=== PATIENT | female | born 1960 | race Caucasian/White ===

== ENCOUNTER 2018-05-20 10:46 | Outpatient (REF) | payer OTHER, SELFPAY ==
--- NOTE | 2018-05-20 10:15 | PAPFT_PTH ---
PATIENT: Jocelyn Saravia LOC: [facility] U#:[id number] AGE/SX: 58/F ROOM: RE05/20/[address]: BANG Weiss : 1960 BED: DIS: 05/20/2018 SPEC #: [id number] RECD: 05/20/18 12:47 STATUS: ISABELLA RELadan #: [id number] CHAU: 05/20/18 10:[address]: Gretel Brewer DEPT: [facility] Cytology RECD BY: Melvi Mckinnon ENTERED: 05/20/18 12:47 SP TYPE: PAPFT SHELLI DR: Ana Daily APRN Tissues: 1 - CX/ENDOCX FOR PAP SMEARS Procedures: PAP THIN PREP/UVM Screening HPV DNA PROBE Comments: [id number]
== END 2018-05-20 11:06 ==
LOC: LBN 10:46
PROVIDERS: PCP Nurse Practitioner; Visit Provider Nurse Practitioner Family
DX: Z12.4 Encounter for screening for malignant neoplasm of cervix (principal); Z11.51 Encounter for screening for human papillomavirus (HPV)
CPT/HCPCS: 88142; 87624

== ENCOUNTER 2018-06-28 08:49 | Outpatient (CLI) | payer OTHER, SELFPAY ==
[2018-06-28 09:27] LABS: HCT 40.9 % (36.0-46.0); HGB 13.6 g/dL (12.0-15.5); Mean Corp. HGB Concentration 33.3 g/dL (32.0-36.0); Mean Corpuscular Hemoglobin 32.2 pg (27.0-33.0); Mean Corpuscular Volume 96.9 fL (80-95); Mean Platelet Volume 10.6 fL (8.0-11.0); Platelet Count 174 x1000/uL (130-400); RBC 4.22 m/cumm (4.00-5.20); RBC Distribution Width 12.6 % (11.7-14.6); White Blood Cell Count 3.98 k/cumm (4.4-10.8)
[2018-06-28 10:56] LABS: ALT 28 U/L (12-78); AST 19 U/L (15-37); Albumin 3.7 g/dL (3.4-5.0); Alkaline Phosphatase 73 U/L (46-116); Anion Gap 8.3 mmol/L (3-11); BUN 17 mg/dL (7-18); Bilirubin, Total 0.6 mg/dL (0.2-1.0); CO2 29.7 mmol/L (21.0-32.0); CREATININE 0.89 mg/dL (0.55-1.02); Calcium 8.9 mg/dL (8.5-10.1); Chloride 106 mmol/L (98-107); Cholesterol 226 mg/dL (50-200); Glucose 88 mg/dL (70-100); HDL Cholesterol 72 mg/dL (40-60); LDL CHOLESTEROL 137 mg/dL (<100); Potassium 4.4 mmol/L (3.5-5.1); Sodium 144 mmol/L (136-145); TSH (W/Ref FT4) 2.81 uIU/mL (0.358-3.74); Total Protein 6.6 g/dL (6.4-8.2); Triglyceride 100 mg/dL (30-150)
== END 2018-06-28 09:09 ==
PROVIDERS: PCP Nurse Practitioner; Visit Provider Nurse Practitioner
DX: I10 Essential (primary) hypertension (principal); E78.00 Pure hypercholesterolemia, unspecified; F43.23 Adjustment disorder with mixed anxiety and depressed mood
CPT/HCPCS: 36415; 80053; 80061; 83721; 85027; 84443

== ENCOUNTER 2018-07-22 14:21 | Outpatient (REF) | payer OTHER, SELFPAY | END 2018-07-22 14:41 | LOC: LBN 14:21 | PROVIDERS: PCP Nurse Practitioner; Visit Provider Nurse Practitioner Family | DX: R30.0 Dysuria (principal) | CPT/HCPCS: 87077; 87086; 87186 ==

== ENCOUNTER 2019-05-20 06:07 | Day surgery (SDC) | payer OTHER, SELFPAY ==
[2019-05-20 06:36] VITALS: BP 118/81; PULSE 51; RESP 16; TEMP 36.6; O2SAT 98
[2019-05-20] MEDS: Lactated Ringers 1,000 ML 80 ML IV (07:07)
--- NOTE | 2019-05-20 07:14 | W.PM.HP.N ---
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 She originally underwent a cheilectomy bunionectomy due to a painful bunion deformity March 2003 with an excellent outcome. Unfortunately she has had progressive degeneration of the joint requiring surgical intervention. Review of Systems All systems reviewed & are unremarkable except as noted in HPI and below PFSH Medical History Atrophic vaginitis (Acute 06/03/13) History of kidney stones (Acute) Surgical History Colonoscopy - MAC (05/22/17) History of bunionectomy (Acute) cheilectomy bunionectomy right foot 2002 History of surgical removal of lesion (Acute) dysplastic nevi exc. from back 2010 Family History Mother Essential hypertension Stroke Father Heart disease Stroke Brother Diabetes Social History Smoking/Tobacco Use Status: Never Alcohol Intake: current Alcohol Intake frequency: a few times a week Alcohol type: wine Drug use: Never Substance use type: does not use current occupation: [employer] Do you feel safe at home: Yes Do you feel safe in your relationship?: Yes History History 0 Para Hx # Term Pregnancies Multiple births Hx # Pregnancies Ectopic pregnancies AB induced Hx Number of Living Children AB spontaneous Meds Home Medications and Allergies Home Medications Medication Instructions Recorded Confirmed Type Lactaid 9,000 unit PO PRN tab.chew 06/09/14 05/20/19 History multivitamin [Daily Multi-Vitamin] 1 ea PO DAILY 06/09/14 05/20/19 History ibuprofen 800 mg PO PRN 07/26/16 05/20/19 History estradiol 10 mcg vaginal tablet 10 mcg VG twice weekly #24 tab 05/20/18 05/20/19 Rx melatonin 3 mg tablet 3 mg PO HS PRN 05/20/18 05/20/19 History nitrofurantoin 100 mg PO BID #14 cap 07/22/18 05/20/19 Rx monohydrate/macrocrystals 100 mg capsule phenazopyridine 100 mg tablet 100 mg PO TID PRN 07/22/18 05/20/19 History Allergies Allergy/AdvReac Type Severity Reaction Status Date / Time Sulfa (Sulfonamide Allergy Intermediate rash Verified 05/20/19 06:49 Antibiotics) doxycycline AdvReac Mild Diarrhea Verified 05/20/19 06:49 Exam Narrative Exam Narrative: 59-year-old female looking her stated age in no acute distress. Peripheral pulses are manually palpable at the ankles 2 out of 4 bilaterally. Capillary refills under 3 seconds to all toes no edema. Muscle groups of 5 out of 5 bilaterally Skeletal exam reveals end-stage degenerative arthrosis of the first MPJ the right foot. Periarticular exostoses are noted and pain is elicited with palpation at the joint line. Minimal range of motion observed at the first MPJ. Enlargement is appreciated laterally over the fifth MPJ with a reactive keratosis seen along the plantar lateral edge of the fifth metatarsal head. Low-grade inflammation is noted and there is pain to gentle palpation. No crepitance of the joint itself was observed. Neurologically she is intact. Toes downgoing. There is no focal deficits. Head is normocephalic Eyes PERRLA Hearing is adequate Uvular is midline, airways assessable, heart had regular rate and rhythm without gallops rubs or murmurs Lung martinez are clear Abdomen was soft, bowel sounds appreciated x4 Impressions end-stage degenerative arthritis first MPJ right foot, bunionette deformity Plan: Jocelyn is being brought to the OR for surgical repair of right bunion and bunionette deformities. She understands risk and complications of surgery pertaining to the potential for pain scarring infection, stiffness of the joint, elevation of the hallux which shortening, recurrence of deformities potentially requiring revisional procedures. Informed consents been obtained no promises made to the final outcome of surgery. Results Last Vital Signs Temp 36.6 C 05/20/19 06:36 Pulse 51 L 05/20/19 06:36 Resp 16 05/20/19 06:36 BP 118/81 05/20/19 06:36 Pulse Ox 98 05/20/19 06:36
[2019-05-20] MEDS: Lidocaine 1% Pres-Free 5 ML VIAL (07:40)
[2019-05-20] MEDS: Bupivacaine 0.5% Pres-Free 30 ML VIAL (07:40)
[2019-05-20] MEDS: Dexamethasone 4 MG/ML VIAL (08:17)
--- NOTE | 2019-05-20 08:49 | W.PM.DSUDISC ---
Discharge Plan Disposition Patient Disposition: HOME Condition: Good Discharge Details Reason For Visit: Correction hallux rigidus and bunionette deformiti Attending Provider: Nirmal Carrasco Primary Care Provider: Ana Daily Home Meds and New Rx's Prescriptions: No Action melatonin 3 mg tablet 3 mg PO HS PRNRF: 0 estradiol [Vagifem] 10 mcg tablet 10 mcg VG twice weekly Qty: 24 RF: 5 phenazopyridine [Pyridium] 100 mg tablet 100 mg PO TID PRNRF: 0 nitrofurantoin monohyd/m-cryst [Macrobid] 100 mg capsule 100 mg PO BID Qty: 14 RF: 0 multivitamin [Daily Multi-Vitamin] 1 EACH tablet 1 ea PO DAILY RF: 0 Lactaid 3,000 UNIT tablet,chewable 9,000 unit PO PRN RF: 0 ibuprofen 800 MG tablet 800 mg PO PRN RF: 0 Discharge Instructions Activity:: Elevate Remove Dressings/Wound Care:: Do Not Remove Shower/Bathe:: Cover Diet:: Normal Diet Discharge Orders Discharge Orders: Discharge Order (Routine); Ordered 05/20/19 Ordered By: Nirmal Carrasco DS: Diagnosis Discharge Diagnosis (1) Hallux rigidus of right foot: Start date: 05/20/19 Start time: 08:50 Status: Acute Asessment and Plan: Underwent a Peace type bunionectomy with 0.062 K wire fixation, partial fifth metatarsal head resection for correction of bunionette deformity oral to the right foot.
[2019-05-20 09:48] VITALS: BP 116/68; PULSE 41; RESP 16; TEMP 36.3; O2SAT 100
--- NOTE | 2019-05-20 10:07 | ROE_ITS ---
DATE OF PROCEDURE: May 20, 2019 PREOPERATIVE DIAGNOSIS: 1. Symptomatic hallux rigidus deformity, right foot. 2. Symptomatic bunionette deformity, right foot. POSTOPERATIVE DIAGNOSIS: Same. PROCEDURE: 1. Peace type bunionectomy with .062 K-Wire fixation. 2. Partial fifth metatarsal head resection, right foot. SURGEON: Marium RuedaPGeorge. ANESTHESIA: IV general with local block first and fifth rays, right foot utilizing 5 cc's of 1% Lido everardo plain and 0.5% Marcaine plain. ANESTHESIA PROVIDER: Genevieve Khan CRNA OPERATIVE INDICATIONS: 59-year-old female with progressive pain associated with a right bunion and b unionette deformity opting for surgical correction. She understands risks and complications of surge ry pertaining to pain, scarring, infection, shortening of the great toe, floating of the great toe, p ersistent discomfort potentially requiring revisional procedures. As far as the bunionette is concer donna, same initial potential complications with the additional caveat of persistent plantar keratosis formation. Informed consent has been obtained. No promises made to the final outcome of surgery. REPORT OF OPERATION: Jocelyn was brought to the operative suite and placed in the supine position. T he right foot prepped and draped in the usual sterile podiatric fashion. Anesthesia was obtained. T he right foot was exsanguinated, a well-padded ankle tourniquet inflated to 250 mmHg. Please note a time-out was performed. Attention was now directed to the first MPJ of the right foot where a 5 cm incision was made medial t o the EHL tendon. The incision was deepened in controlled depth fashion; hemostasis acquired with el ectrocautery, as needed. Dissection was carried down to the joint capsule, which was incised dorsal medially. The joint capsule was very fibrotic and adherent onto the surrounding bone and joint struc tures. It was carefully dissected, removed from the bone. AO's were then inserted at either side of the base of the proximal phalanx and approximately 1 cm of bone resected through power instrumentati on. Please note that the joint surfaces showed end-stage degenerative arthrosis with complete loss o f articular surfaces. The medial, lateral and dorsal aspect of the first metatarsal head was remodel ed. All rough and bony edges were rasped smooth. The wound was copiously irrigated. Fixation was o btained with a .062 K-Wire in retrograde fashion. The joint capsule was repaired after copious irrig ation with simple interrupted suture #3-0 Vicryl. The subcutaneous layer was repaired with a combina tion of #3-0 and #4-0 Vicryl and a running #4-0 Monocryl was used to coapt the skin. Attention was now directed to the fifth MPJ where a 2 cm incision was made over the dorsal lateral as pect of the joint. The incision was deepened in controlled depth fashion; hemostasis acquired with e lectrocautery. The joint capsule was visualized and incised laterally. The joint capsule was reflec uriah plantarly and dorsally. With osteotome and mallet the lateral and lateral plantar aspects of the fifth metatarsal head were resected. The resection was in line with the lateral edge of the base of the proximal phalanx. All rough and bony edges were then rasped smooth. Copious irrigation perform ed. The joint capsule was repaired with simple interrupted suture #3-0 Vicryl. The skin was coapted with #4-0 Vicryl and then a continuous locking suture of #4-0 nylon. Four milligrams of dexamethaso ne phosphate was infused about the first MPJ. Mastisol, half-inch Steri-Strips applied to the bunion incision. Betadine ointment applied to the K-Wire. Xeroform applied to all regions, followed by fl uff, Kerlix, stockinette and 4-inch NAZANIN wrap. The tourniquet was released at approximately 47 minute s with vascularity returning immediately to all toes. The patient left the OR with vital signs stabl e, vascular status intact. She will be followed by me in the office next week.
== END 2019-05-20 10:11 | disposition home or self-care (01) ==
PROVIDERS: PCP Nurse Practitioner; Visit Provider Podiatrist
PROC: (CPT 28292; principal; 2019-05-20 07:30)
DX: M20.21 Hallux rigidus, right foot (principal); M21.621 Bunionette of right foot
CPT/HCPCS: 28292; 28110; 99223; J1100; J1885; J2001; J2405; J2704

== ENCOUNTER 2019-07-27 00:08 | Emergency (ER) | payer OTHER, SELFPAY ==
[2019-07-27 00:20] VITALS: BP 130/83; PULSE 60; RESP 16; TEMP 36.1; O2SAT 100
--- NOTE | 2019-07-27 00:32 | ED.GENADUL_ITS ---
Discharge Plan Disposition Patient Disposition: HOME Condition: Good Discharge Details Chief Complaint: FlankPain Clinical Impression: Calculus of proximal left ureter, Bladder calculi Primary Care Provider: Ana Daily ED Provider: Michael Stiles Meds and New Rx's Prescriptions: New Ondansetron Odt, 3 Tabs/Btl [Zofran Odt, 3 Tabs/Btl] 4 mg PO Q8H PRN (Reason: Nausea And Vomiting) Qty: 3 RF: 0 tamsulosin 0.4 mg capsule 0.4 mg PO DAILY Qty: 14 RF: 0 ibuprofen 600 mg tablet 600 mg PO Q6H PRNQty: 20 RF: 0 Continued melatonin 3 mg tablet 3 mg PO HS PRNRF: 0 estradiol [Vagifem] 10 mcg tablet 10 mcg VG twice weekly Qty: 24 RF: 5 multivitamin [Daily Multi-Vitamin] 1 EACH tablet 1 ea PO DAILY RF: 0 Lactaid 3,000 UNIT tablet,chewable 9,000 unit PO PRN RF: 0 Discontinued ibuprofen 800 MG tablet 800 mg PO PRN RF: 0 No Action hydrocodone-acetaminophen 5-325 mg tablet 1 tab PO BID MDD 10 PRN (Reason: pain) Qty: 20 RF: 0 ciprofloxacin HCl 250 mg tablet 250 mg PO BID Qty: 10 RF: 0 Discharge Instructions Instructions: Hydrocodone/Acetaminophen (By mouth), Ondansetron (By mouth), Renal Colic (ED), How to Strain Your Urine (ED) Additional Instructions: Be sure to drink plenty of fluids to stay hydrated. Use your ibuprofen every 6- 8 hours for pain. Use the hydrocodone/acetaminophen for breakthrough pain if required. Use ondansetron for current nausea or vomiting. Tamsulosin to try to help with the stone passage. Contact Dr. Mistry for follow-up early next week if the stone does not pass. Will need follow-up with him at a later date for discussion regarding the bladder stone if the current ureteral stone passes on its own. Return to ED if you develop fever, uncontrolled pain, uncontrolled vomiting. Referrals: Jimmy Mistry MD [ [facility] STAFF PHYSICIAN] - Ana Daily NP [Primary Care Provider] - Discharge Data Discharge Date/Time-TO BE ENTERED AT DEPARTURE: 07/27/19 03:55 Medical Decision Making <ALICE John - Last Filed: 07/30/19 08:40> Patient is a pleasant 59-year-old female presenting today with chief complaint of left flank pain. She reports sudden onset 1 hour prior to arrival. States is left flank and radiates slightly and inferior down the lower back. She reports that she has had symptoms like this historically and attributes it to nephrolithiasis. Estimates the last episode to be in year 1999. She denies any fevers or chills. Reports feeling well prior to the onset of discomfort. Denies any hematuria, dysuria increased frequency or urgency. No change in bowel habits. Denies any abdominal pain. Patient is actively vomiting and appears to be in severe pain. Exam and history is most concerning for nephrolithiasis. Will give Toradol, Zofran and fluids. Plan to obtain CT imaging. At the end of my shift, care transitioned to Dr. Stiles with CT and labs pending. Patient has had above interventions plus 1mg Dilaudid IV for persistent pain. <Michael Stiles MD - Last Filed: 07/27/19 03:34> Patient signed out to me pending CT scan and laboratory results after presenting with acute onset of left flank pain with previous history of kidney stones. She had been well up until 1 hour prior to arrival. She did have emesis here likely related to the severe pain. She has had no fever. Laboratory studies show a normal CBC. She has normal kidney function. Urine is positive for blood and leukocyte Estrace. She has 10-20 red cells and 10-20 white cells. Few bacteria noted. Culture sent. CT scan does show a 4 mm proximal left ureteral stone with mild hydronephrosis. She also has a large 1.3 cm bladder calculus. Given her lack of fever with normal vitals and normal white count, I do not think she has infected stone even with the noted white cells on urine micro. She has been much more comfortable since receiving Dila udid. Patient will be started on Flomax. She will be asked to use ibuprofen 600 mg every 6-8 hours. She will be given a [place] prepack for breakthrough pain. She will be given Zofran prepack for nausea vomiting. Prescription for Flomax given. Referral to Dr. Mistry for follow-up early next week if she has not passed her kidney stone. If she has she can follow-up at a later point in regards to the bladder stone. Instructed to return to ED if she develops fever, uncontrolled pain, uncontrolled vomiting. Lab Data Lab results reviewed: Yes I reviewed the patient's lab results. HPI <ALICE John - Last Filed: 07/30/19 08:40> General Mode of arrival: ambulatory . Date/Time Provider Initiated Documentation: 07/27/19 00:18 . Limitations to Documentation: no limitations . Information obtained by: patient, family () and RN notes reviewed . History of Present Illness 59 year old F presents to the emergency department with the chief complaint of left flank pain, described as severe and similar to prior episodes (hx of kidney stones 1999), with intensity rated at 10. Quality is described as stabbing, and is localized to the back. Patient reports no radiation. Patient started experiencing this hour(s) (1) and it has been constant. No relieving factors improve symptom(s), No exacerbating factors reported . Patient notes loss of appetite and nausea/vomiting; denies chest pain, diaphoresis, fever/chills, rash and shortness of breath. Patient did receive the following treatments prior to arrival, none Related Data Home Medications Medication Instructions Recorded Confirmed Lactaid 9,000 unit PO PRN tab.chew 06/09/14 07/29/19 multivitamin [Daily Multi-Vitamin] 1 ea PO DAILY 06/09/14 07/29/19 melatonin 3 mg tablet 3 mg PO HS PRN 05/20/18 07/29/19 estradiol 10 mcg vaginal tablet 10 mcg VG twice weekly #24 tab 07/07/19 07/29/19 Ondansetron ODT, 3 tabs/btl 4 mg PO Q8H PRN #3 tab 07/27/19 07/29/19 [Zofran ODT, 3 tabs/btl] ibuprofen 600 mg PO Q6H PRN #20 tab 07/27/19 07/29/19 tamsulosin 0.4 mg PO DAILY #14 cap 07/27/19 07/29/19 ciprofloxacin HCl 250 mg tablet 250 mg PO BID #10 tab 07/29/19 07/29/19 hydrocodone 5 mg-acetaminophen 325 1 tab PO BID PRN #20 tab MDD 10 07/29/19 07/29/19 mg tablet Previous Rx's Medication Instructions Recorded estradiol 10 mcg vaginal tablet 10 mcg VG twice weekly #24 tab 07/07/19 Ondansetron ODT, 3 tabs/btl 4 mg PO Q8H PRN #3 tab 07/27/19 [Zofran ODT, 3 tabs/btl] ibuprofen 600 mg PO Q6H PRN #20 tab 07/27/19 tamsulosin 0.4 mg PO DAILY #14 cap 07/27/19 ciprofloxacin HCl 250 mg tablet 250 mg PO BID #10 tab 07/29/19 hydrocodone 5 mg-acetaminophen 325 1 tab PO BID PRN #20 tab MDD 10 07/29/19 mg tablet Allergies Allergy/AdvReac Type Severity Reaction Status Date / Time Sulfa (Sulfonamide Allergy Intermediate rash Verified 07/29/19 08:17 Antibiotics) doxycycline AdvReac Mild Diarrhea Verified 07/29/19 08:17 General Stated Complaint: FlankPain LETTY: 3 Review of Systems <ALICE John - Last Filed: 07/30/19 08:40> Constitutional Constitutional: Reports as per HPI, Denies chills, Denies fatigue, Denies fever(s) and Denies headache(s) ENT Ears, Nose, Mouth, and Throat: Denies headache(s) Cardiovascular Cardiovascular: Reports as per HPI, Denies chest pain and Denies dyspnea Respiratory Respiratory: Reports as per HPI, Denies cough and Denies dyspnea Gastrointestinal Gastrointestinal: Reports as per HPI Genitourinary Genitourinary: Reports as per HPI Musculoskeletal Musculoskeletal: Reports as per HPI Neurologic Neurologic: Denies headache(s) Endocrine Endocrine: Denies fatigue PFSH <ALICE John - Last Filed: 07/30/19 08:40> Medical History Atrophic vaginitis (Acute 06/03/13) History of kidney stones (Acute) Surgical History Colonoscopy - MAC (05/22/17) History of bunionectomy (Acute) cheilectomy bunionectomy right foot 2002 History of surgical removal of lesion (Acute) dysplastic nevi exc. from back 2010 Social History Smoking/Tobacco Use Status: Never Alcohol Intake: current Alcohol Intake frequency: a few times a week Alcohol type: wine Drug use: Never Substance use type: does not use current occupation: [employer] Do you feel safe at home: Yes Do you feel safe in your relationship?: Yes History History 0 Para Hx # Term Pregnancies Multiple births Hx # Pregnancies Ectopic pregnancies AB induced Hx Number of Living Children AB spontaneous Exam <ALICE John Last Filed: 07/30/19 08:40> Const General: cooperative, uncomfortable (patient appears to be very uncomfortable), no acute distress, well developed and ill appearing acutely (actively vomiting) Nutritional Appearance: average body habitus and well nourished Orientation: alert and awake HENMT Mouth: moist mucous membranes Resp Effort & Inspection: normal respiratory effort and no respiratory distress Auscultation: clear to auscultation bilaterally, no rales, no rhonchi and no wheezes Cardio Rate: regular rate Rhythm: regular rhythm Heart Sounds: S1 normal and S2 normal GI Inspection: normal to inspection, no edema and non-distended Palpation: soft, no hepatosplenomegaly, no guarding, no hernias, no pulsatile masses and nontender Percussion: normal to percussion Auscultation: normal bowel sounds Back/Spine/Pelvis Back: no CVA tenderness Skin General skin exam: no rashes or lesions noted Neuro General: patient alert and patient awake Cognition: normal cognition Speech: speech normal Gait: normal gait Psych Appearance: grossly normal and well kempt Mental Status: mental status grossly normal Speech and Movement: speech and movement normal Course <ALICE John Last Filed: 07/30/19 08:40> Vital Signs Vital signs: Vital Signs Temperature 36.1 C L 07/27/19 00:20 Pulse 60 07/27/19 00:20 Respiratory Rate 16 07/27/19 00:20 Pulse Oximetry 100 07/27/19 00:20 Temperature 36.1 C L 07/27/19 00:20 Temperature Source Skin 07/27/19 00:20 Pulse 60 07/27/19 00:20 Respiratory Rate 16 07/27/19 00:20 Blood Pressure Position Sitting 07/27/19 00:20 Pulse Oximetry 100 07/27/19 00:20 Oxygen Delivery Method Room Air 07/27/19 00:20 Oxygen Flow Rate 0 07/27/19 00:20 Sign Out <ALICE John Last Filed: 07/30/19 08:40> Sign Out Data: Sign Out Comment: Care transitioned to Dr. Stiles with labs and imaging pending. Patient has received Toradol, Zofran and dilaudid. Last updated by Chelsey Urias PA at 07/27/19 00:49
[2019-07-27] MEDS: Ketorolac 30 MG/ML VIAL IVP (00:35)
[2019-07-27] MEDS: Ondansetron 4 MG/2 ML VIAL IVP ×2 (00:35→03:40)
[2019-07-27] MEDS: Normal Saline Flush 10 ML SYR IVP (00:36)
[2019-07-27] MEDS: Normal Saline 1,000 ML 1000 ML IV (00:36)
[2019-07-27 00:51] LABS: Abs Immature Grans 0.01 k/cumm (0.0-0.09); Absolute Basophil Count 0.02 k/cumm (0.0-0.2); Absolute Eosinophil Count 0.08 k/cumm (0.0-0.7); Absolute Lymphocyte Count 3.34 k/cumm (1.2-3.4); Absolute Neutrophil Count 2.52 k/cumm (1.2-6.7); Basophils % 0.3; Eosinophils % 1.2; HCT 40.6 % (36.0-46.0); Immature Grans % 0.2 %; Lymphocytes % 50.8; Mean Corp. HGB Concentration 34.5 g/dL (32.0-36.0); Mean Corpuscular Hemoglobin 32.5 pg (27.0-33.0); Mean Corpuscular Volume 94.2 fL (80-95); Mean Platelet Volume 10.5 fL (8.0-11.0); Monocytes % 9.1; Neutrophils % 38.4; Platelet Count 168 x1000/uL (130-400); RBC 4.31 m/cumm (4.00-5.20); RBC Distribution Width 12.2 % (11.7-14.6); White Blood Cell Count 6.57 k/cumm (4.4-10.8)
[2019-07-27] MEDS: HYDROmorphone 2 MG/ML VIAL 1 MG IVP (00:57)
[2019-07-27 00:59] LABS: ALT 26 U/L (14-59); AST 21 U/L (15-37); Albumin 3.9 g/dL (3.4-5.0); Alkaline Phosphatase 67 U/L (46-116); Anion Gap 8.9 mmol/L (3-11); BUN 23 mg/dL (7-18); Bilirubin, Total 0.2 mg/dL (0.2-1.0); CO2 28.1 mmol/L (21.0-32.0); Calcium 9.2 mg/dL (8.5-10.1); Chloride 108 mmol/L (98-107); Estimated GFR 56.56 (mL/min/1.73m2); Glucose 133 mg/dL (74-106); Potassium 3.6 mmol/L (3.5-5.1); Sodium 145 mmol/L (136-145); Total Protein 6.9 g/dL (6.4-8.2)
[2019-07-27 01:23] VITALS: BP 115/71; PULSE 45; RESP 16; O2SAT 100
--- NOTE | 2019-07-27 01:25 | DI.CT_ITS ---
EXAM: CT RENAL COLIC WO CLINICAL HISTORY: left flank pain COMPARISON: No exams were available for comparison FINDINGS: CT examination of the abdomen and pelvis was performed without contrast administration. Images obtain ed through the lung bases are unremarkable. The visualized liver and spleen appear normal. Pancreas is unremarkable by CT criteria as are the gallbladder and bile ducts. Abdominal aorta is of normal diameter. No significant abdominal wall hernia. No significant abdominal or pelvic adenopathy. No free fluid or free air in the peritoneal cavity. Adrenals appear normal bilaterally. There are multiple bilateral nonobstructing renal calculi. Ther e is a 4 millimeter in diameter proximal left ureteral calculus causing mild left hydronephrosis. 13 millimeter stone is present in the urinary bladder as well. No additional ureteral calculi seen. Appendix is normal. No evidence of diverticulitis or bowel obstruction. 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 IMPRESSION: Bilateral nonobstructing renal calculi and urinary bladder calculus noted. Obstructing 4 millimeter in diameter proximal left ureteral stone with mild left hydronephrosis.
--- NOTE | 2019-07-27 01:52 | DI.VRAD_ITS ---
PROCEDURE INFORMATION: Exam: CT Abdomen And Pelvis Without Contrast Exam date and time: 07/27/2019 12:31 AM Age: 59 years old Clinical indication: Patient HX: Left flank pain, HX of kidney stones TECHNIQUE: Imaging protocol: Computed tomography of the abdomen and pelvis without contrast. Radiation optimization: All CT scans at this facility use at least one of these dose optimization techniques: automated exposure control; mA and/or kV adjustment per patient size (includes targeted exams where dose is matched to clinical indication); or iterative reconstruction. COMPARISON: No relevant prior studies available. FINDINGS: Liver: Unremarkable. Gallbladder and bile ducts: No calcified gallstones. No significant biliary dilation. Pancreas: Unremarkable. Spleen: Unremarkable. Adrenals: No mass. Kidneys and ureters: Tiny nonobstructing bilateral renal calculi. Mild left hydronephrosis. A 4 mm calculus is seen in the proximal left ureter. Stomach and bowel: No bowel obstruction. There are a few scattered colonic diverticuli. No evidence of diverticulitis. Appendix: No evidence of appendicitis. Intraperitoneal space: Unremarkable. No free air. No significant fluid collection. Vasculature: Unremarkable. No abdominal aortic aneurysm. Lymph nodes: Unremarkable. No enlarged lymph nodes. Bladder: A 1.3 cm calculus is seen within the bladder. Reproductive: Unremarkable as visualized. Bones/joints: No acute bony abnormality. Soft tissues: Small, fat containing umbilical hernia. IMPRESSION: 1. Mild left hydronephrosis. 4 mm calculus in the proximal left ureter. 2. Bilateral non-obstructing renal calculi. 3. Bladder calculus. 4. Additional incidental/non-emergent findings, as above. Dictated and Authenticated by: Jose Miguel Scott MD. Ordering:RENY Barbosa MD
[2019-07-27 02:11] LABS: Bilirubin Negative (Negative); Blood Moderate (Negative); Clarity Sl Cloudy (Clear); Glucose Negative (Negative); Ketones Negative (Negative); Leukocyte Esterase Moderate (Negative); Nitrite Negative (Negative); Specific Gravity 1.025 (1.005-1.025); Urobilinogen 0.2 EU/dL (Up TO 0.2); pH 6.5 (5-8)
[2019-07-27 02:19] LABS: Bacteria Few HPF (Negative); C & S Indicated? Yes; Casts Negative LPF (Negative); Crystals Negative HPF (Negative); Epithelial Cells Rare HPF (Negative); Mucus Negative (Negative)
[2019-07-27 02:56] VITALS: BP 126/75; PULSE 50; RESP 16; O2SAT 100
--- NOTE | 2019-07-27 03:20 | NUR.NOTE ---
Nursing NoteFAXED REFERAL TO DR CURTIS 07/27/19:
[2019-07-27] MEDS: Ondansetron O.D.T. 4 MG TABEF, 3 TABS/BTL PO (03:40)
[2019-07-27] MEDS: Tamsulosin 0.4 MG CAPCR PO (03:40)
== END 2019-07-27 03:55 | disposition home or self-care (01) ==
PROVIDERS: Physician Assistant; Emergency Provider Emergency Medicine; PCP Nurse Practitioner
DX: N21.0 Calculus in bladder (principal); N20.1 Calculus of ureter
CPT/HCPCS: 80053; 87077; 96361; 96374; 96375; 96376; 99285; 74176; 81003; 81015; 85025; 87086; 87186; 99284; J1885; J2405

== ENCOUNTER 2019-07-28 12:31 | Outpatient (REF) | payer OTHER, SELFPAY | END 2019-07-28 12:51 | LOC: LBN 12:31 | PROVIDERS: PCP Nurse Practitioner; Visit Provider Nurse Practitioner Gerontology | DX: N20.1 Calculus of ureter (principal); N21.0 Calculus in bladder | CPT/HCPCS: 87086 ==

== ENCOUNTER 2019-07-29 02:32 | Day surgery (SDC) | payer OTHER, SELFPAY ==
[2019-07-29 02:41] VITALS: BP 143/80; PULSE 58; RESP 20; TEMP 36.8; O2SAT 96
--- NOTE | 2019-07-29 02:41 | ED.GENADUL_ITS ---
Discharge Plan Disposition Patient Disposition: [facility] INPATIENT Condition: Fair Discharge Details Chief Complaint: FlankPain Clinical Impression: Left ureteral stone, UTI (urinary tract infection), bacterial Primary Care Provider: Ana Daily ED Provider: Michael Stiles Meds and New Rx's Prescriptions: No Action melatonin 3 mg tablet 3 mg PO HS PRNRF: 0 estradiol [Vagifem] 10 mcg tablet 10 mcg VG twice weekly Qty: 24 RF: 5 hydrocodone-acetaminophen 5-325 mg tablet 1 tab PO BID MDD 10 PRN (Reason: pain) Qty: 10 RF: 0 multivitamin [Daily Multi-Vitamin] 1 EACH tablet 1 ea PO DAILY RF: 0 Lactaid 3,000 UNIT tablet,chewable 9,000 unit PO PRN RF: 0 Ondansetron Odt, 3 Tabs/Btl [Zofran Odt, 3 Tabs/Btl] 4 mg PO Q8H PRN (Reason: Nausea And Vomiting) Qty: 3 RF: 0 tamsulosin 0.4 mg capsule 0.4 mg PO DAILY Qty: 14 RF: 0 ibuprofen 600 mg tablet 600 mg PO Q6H PRNQty: 20 RF: 0 Medical Decision Making Recurrent pain secondary to ureteral stone. Afebrile. Looks uncomfortable. Establish IV and give fluids and antiemetics/pain medication. Repeat labs and UA. Reevaluate. 5am - Patient feeling much better without pain. Still normal WBC. Creatinine has gone up some. Urine no longer has red cells but continues to have white cells. Urine culture from last ED visit is now growing greater than 100,000 enterococcus. Repeat imaging not done. Will need to consider probable infected stone at this point. Will dose with IV Ancef and contact urology, Dr. Mistry. 5:30 - Discussed with Dr. Mistry. Will keep the patient here in ED and he will see around 7am. Plan to go to OR from here and then discharge from PACU after surgery. Patient and aware and agreeable. Lab Data Lab results reviewed: Yes I reviewed the patient's lab results. HPI General Mode of arrival: ambulatory . Date/Time Provider Initiated Documentation: 07/29/19 02:41 . Limitations to Documentation: no limitations . Information obtained by: patient, RN notes reviewed and old records reviewed . HPI Narrative: Patient presents to ED with left flank and lower quadrant pain. Patient seen here 2 days ago with diagnosis of proximal left ureteral stone. Had been doing relatively well until tonight. Pain has moved and is now lower in the flank and abdomen. No fever. Nausea and some dry heaves with a severe pain. No urinary symptoms. Has taken ibuprofen and 1-1/2 [place] tablets at home without relief. Related Data Home Medications Medication Instructions Recorded Confirmed Lactaid 9,000 unit PO PRN tab.chew 06/09/14 07/29/19 multivitamin [Daily Multi-Vitamin] 1 ea PO DAILY 06/09/14 07/29/19 melatonin 3 mg tablet 3 mg PO HS PRN 05/20/18 07/29/19 estradiol 10 mcg vaginal tablet 10 mcg VG twice weekly #24 tab 07/07/19 07/29/19 Ondansetron ODT, 3 tabs/btl 4 mg PO Q8H PRN #3 tab 07/27/19 07/29/19 [Zofran ODT, 3 tabs/btl] ibuprofen 600 mg PO Q6H PRN #20 tab 07/27/19 07/29/19 tamsulosin 0.4 mg PO DAILY #14 cap 07/27/19 07/29/19 hydrocodone 5 mg-acetaminophen 325 1 tab PO BID PRN #10 tab MDD 10 07/28/19 07/29/19 mg tablet Previous Rx's Medication Instructions Recorded estradiol 10 mcg vaginal tablet 10 mcg VG twice weekly #24 tab 07/07/19 Ondansetron ODT, 3 tabs/btl 4 mg PO Q8H PRN #3 tab 07/27/19 [Zofran ODT, 3 tabs/btl] ibuprofen 600 mg PO Q6H PRN #20 tab 07/27/19 tamsulosin 0.4 mg PO DAILY #14 cap 07/27/19 hydrocodone 5 mg-acetaminophen 325 1 tab PO BID PRN #10 tab MDD 10 07/28/19 mg tablet Allergies Allergy/AdvReac Type Severity Reaction Status Date / Time Sulfa (Sulfonamide Allergy Intermediate rash Verified 07/29/19 02:43 Antibiotics) doxycycline AdvReac Mild Diarrhea Verified 07/29/19 02:43 General LETTY: 3 Review of Systems Narrative: 02/21 Review of Systems completed and is negative except as stated above in HPI (Systems reviewed: Const, Eyes, ENT, Resp, CV, GI, , MSK, Skin, Neuro) [facility] Medical History Atrophic vaginitis (Acute 06/03/13) History of kidney stones (Acute) Surgical History Colonoscopy - MAC (05/22/17) History of bunionectomy (Acute) cheilectomy bunionectomy right foot 2002 History of surgical removal of lesion (Acute) dysplastic nevi exc. from back 2010 Social History Smoking/Tobacco Use Status: Never Alcohol Intake: current Alcohol Intake frequency: a few times a week Alcohol type: wine Drug use: Never Substance use type: does not use current occupation: [employer] Do you feel safe at home: Yes Do you feel safe in your relationship?: Yes History History 0 Para Hx # Term Pregnancies Multiple births Hx # Pregnancies Ectopic pregnancies AB induced Hx Number of Living Children AB spontaneous Exam Narrative Exam Narrative: Vitals: Afebrile. Elevated blood pressure. Normal pulse oximetry. Const: WDWN female appears uncomfortable. HEENT: NC/AT. Normal facial exam. Eyes: Normal conjunctiva and sclera. Neck: Supple. Trachea midline. Lungs: Normal respiratory effort. GI: Soft. NT/ND. No guarding or rebound. Back: Mild left CVAT Neuro: A+O x 3. Normal speech, mentation, gait. Cranial nerves II - XII grossly intact. No gross motor or sensory deficit. Ext: No C/C/E. Skin: Warm and dry without rash.
[2019-07-29] MEDS: Ondansetron 4 MG/2 ML VIAL IVP (03:01)
[2019-07-29] MEDS: MORPHine 10 MG/ML VIAL 4 MG IVP ×2 (03:02→10:35)
[2019-07-29] MEDS: Ketorolac 30 MG/ML VIAL 15 MG IVP (03:03)
[2019-07-29] MEDS: Normal Saline Flush 10 ML SYR IVP ×2 (03:05→10:36)
[2019-07-29] MEDS: Normal Saline 1,000 ML 125 ML IV (03:05)
[2019-07-29 04:20] LABS: Abs Immature Grans 0.02 k/cumm (0.0-0.09); Absolute Basophil Count 0.01 k/cumm (0.0-0.2); Absolute Lymphocyte Count 0.69 k/cumm (1.2-3.4); Absolute Monocyte Count 0.75 k/cumm (0.11-0.7); Absolute Neutrophil Count 6.98 k/cumm (1.2-6.7); Basophils % 0.1; HCT 38.7 % (36.0-46.0); HGB 12.9 g/dL (12.0-15.5); Immature Grans % 0.2 %; Lymphocytes % 8.2; Mean Corp. HGB Concentration 33.3 g/dL (32.0-36.0); Mean Corpuscular Hemoglobin 32.1 pg (27.0-33.0); Mean Corpuscular Volume 96.3 fL (80-95); Mean Platelet Volume 11.4 fL (8.0-11.0); Monocytes % 8.9; Neutrophils % 82.6; Platelet Count 153 x1000/uL (130-400); RBC 4.02 m/cumm (4.00-5.20); RBC Distribution Width 12.3 % (11.7-14.6); White Blood Cell Count 8.45 k/cumm (4.4-10.8)
[2019-07-29 04:28] LABS: Anion Gap 10.5 mmol/L (3-11); BUN 18 mg/dL (7-18); CO2 25.5 mmol/L (21.0-32.0); CREATININE 1.38 mg/dL (0.55-1.02); Calcium 8.5 mg/dL (8.5-10.1); Chloride 104 mmol/L (98-107); Glucose 122 mg/dL (74-106); Potassium 4.2 mmol/L (3.5-5.1); Sodium 140 mmol/L (136-145)
[2019-07-29 04:38] LABS: Bilirubin Negative (Negative); Blood Negative (Negative); Clarity Clear (Clear); Glucose Negative (Negative); Ketones Negative (Negative); Leukocyte Esterase Small (Negative); Nitrite Negative (Negative); Specific Gravity 1.025 (1.005-1.025); Urobilinogen 0.2 EU/dL (Up TO 0.2)
[2019-07-29 04:41] LABS: Bacteria Moderate HPF (Negative); C & S Indicated? Yes; Casts Negative LPF (Negative); Crystals Negative HPF (Negative); Epithelial Cells Few HPF (Negative); Mucus Negative (Negative); RBC Negative HPF (0-2)
--- NOTE | 2019-07-29 07:06 | NUR.NOTE ---
Nursing Note: Report given to Ai and care assumed by oncoming shift. Pain medication has been effective for patient and she has remained comfortable. No complaints at this time. Pending OR.
--- NOTE | 2019-07-29 07:27 | HPE_ITS ---
Date of service: 07/29/19 Time of Service: 07:28 Assessment and Plan Assessment and plan (1) Left ureteral stone: Status: Acute Assessment and plan: With the presence of a urinary tract infection, I thi nk we need to at least place a ureteral stent in this woman. If her ureteral stone has migrated distally, I may be able to remove the stone as well, but placing a stent would allow us to relieve any obstruction and arrange for treatment of both her ureteral and bladder stone as a staged procedure. I would expect that she will be able to be discharged immediately after the procedure and not require hospitalization as an inpatient. History of Present Illness History of Present Illness Chief Complaint: Left ureteral stone Narrative: This is a 59-year-old woman who was seen in our office yesterday. She originally presented to the emergency room with left flank pain. She was found to have a 4 mm left proximal ureteral stone that was causing obstruction. She was also found to have a large stone in her bladder. When she was seen yesterday, her pain was reasonably well-controlled. She presented back to the emergency room this morning with an acute onset of left lower quadrant pain, nausea and vomiting. Her pain has been controlled with IV analgesics, but her urine culture from her original presentation is now growing E. coli. She has no fevers or chills. She does have a history of recurrent urinary tract infections, but has not had any recent dysuria. She does admit to intermittent voiding symptoms which may be related to her bladder stone. She has had some bladder spasms as well. She has passed a stone about 20 years ago. She is never required any type of urologic surgery. Review of Systems Narrative: No fevers or chills No vision change or dysphasia No diabetes or thyroid No shortness of breath, cough or hemoptysis No chest pain or palpitations No hepatitis, ulcers, jaundice, diarrhea or constipation No seizures, strokes or peripheral neuropathy No bleeding disorders or anemia No gout [facility] Medical History Atrophic vaginitis (Acute 06/03/13) History of kidney stones (Acute) Surgical History Colonoscopy - MAC (05/22/17) History of bunionectomy (Acute) cheilectomy bunionectomy right foot 2002 History of surgical removal of lesion (Acute) dysplastic nevi exc. from back 2010 Social History Smoking/Tobacco Use Status: Never Alcohol Intake: current Alcohol Intake frequency: a few times a week Alcohol type: wine Drug use: Never Substance use type: does not use current occupation: [employer] Do you feel safe at home: Yes Do you feel safe in your relationship?: Yes History History 0 Para Hx # Term Pregnancies Multiple births Hx # Pregnancies Ectopic pregnancies AB induced Hx Number of Living Children AB spontaneous Meds Home Medications and Allergies Home Medications Medication Instructions Recorded Confirmed Type Lactaid 9,000 unit PO PRN tab.chew 06/09/14 07/29/19 History multivitamin [Daily Multi-Vitamin] 1 ea PO DAILY 06/09/14 07/29/19 History melatonin 3 mg tablet 3 mg PO HS PRN 05/20/18 07/29/19 History estradiol 10 mcg vaginal tablet 10 mcg VG twice weekly #24 tab 07/07/19 07/29/19 Rx Ondansetron ODT, 3 tabs/btl 4 mg PO Q8H PRN #3 tab 07/27/19 07/29/19 Rx [Zofran ODT, 3 tabs/btl] ibuprofen 600 mg PO Q6H PRN #20 tab 07/27/19 07/29/19 Rx tamsulosin 0.4 mg PO DAILY #14 cap 07/27/19 07/29/19 Rx hydrocodone 5 mg-acetaminophen 325 1 tab PO BID PRN #10 tab MDD 10 07/28/19 07/29/19 Rx mg tablet Allergies Allergy/AdvReac Type Severity Reaction Status Date / Time Sulfa (Sulfonamide Allergy Intermediate rash Verified 07/29/19 02:43 Antibiotics) doxycycline AdvReac Mild Diarrhea Verified 07/29/19 02:43 Exam Narrative Exam Narrative: She is a very pleasant woman in no current distress. She is cooperative. Vital signs are documented elsewhere in the chart Her chest wall motion is normal. She is not short of breath at rest. Her lungs are clear. Cardiac exam shows a regular rate and rhythm Her neck is supple with no mass Her abdomen is soft with no guarding or rebound tenderness She is awake, alert and oriented. Results Labs Result diagrams: 07/29/19 02:56 07/29/19 02:56 Labs: Laboratory Results - last 24 hr 07/29/19 07/29/19 07/29/19 02:56 02:56 04:13 WBC 8.45 RBC 4.02 Hgb 12.9 Hct 38.7 MCV 96.3 H MCH 32.1 MCHC 33.3 RDW 12.3 Plt Count 153 MPV 11.4 H Immature Gran % 0.2 Neutrophils % 82.6 Lymphocytes % 8.2 Monocytes % 8.9 Eosinophils % 0.0 Basophils % 0.1 Absolute Neutrophils 6.98 H Absolute Lymphocytes 0.69 L Absolute Monocytes 0.75 H Absolute Eosinophils 0.00 Absolute Basophils 0.01 Sodium 140 Potassium 4.2 Chloride 104 Carbon Dioxide 25.5 Anion Gap 10.5 BUN 18 Creatinine 1.38 H Estimated GFR/1.73 m2 39.00 Glucose 122 H Calcium 8.5 Urine Color Yellow Urine Clarity Clear Urine pH 6.0 Ur Specific Desmet 1.025 Urine Protein Negative Urine Ketones Negative Urine Blood Negative Urine Nitrite Negative Urine Bilirubin Negative Urine Urobilinogen 0.2 Ur Leukocyte Esterase Small H Urine RBC Negative Urine WBC 10-20 H Ur Epithelial Cells Few Urine Crystals Negative Urine Bacteria Moderate Urine Casts Negative Urine Mucus Negative Ur Culture Indicated? Yes Urine Glucose Negative Last Vital Signs Temp 36.8 C 07/29/19 02:41 Pulse 58 L 07/29/19 02:41 Resp 20 07/29/19 02:41 BP 143/80 H 07/29/19 02:41 Pulse Ox 96 07/29/19 02:41
[2019-07-29 08:15] VITALS: BP 124/76; PULSE 45; RESP 16; TEMP 36.7; O2SAT 98
[2019-07-29] MEDS: Lactated Ringers 1,000 ML 80 ML IV (08:25)
--- NOTE | 2019-07-29 10:40 | NUR.NOTE ---
Nursing Note: 07/29/19 @ 1035: Pt awoke and started to feel pain again. She noted at the time that her pain was a 4/10 and rising. This nurse went to find someone from Anesthesia to advise pain management and found Royer who advised that it was ok to give Morphine 4mg IVP per ED order that followed pt. Advised him that she had it last around 0300 AM. Pt was then administered 4mg IVP Morphine and given a warm blanket. She noted that this immediately helped her pain.
--- NOTE | 2019-07-29 12:15 | DI.RAD_ITS ---
EXAM: XR RETROGRADE IN OR INDICATION: LEFT URETERAL STONE. COMPARISON: No exams were available for comparison TECHNIQUE: 2D digital imaging was performed. FINDINGS: C-arm fluoroscopy was utilized by Dr. Mistry during retrograde study. Hard copy shows apparent ureter al stent overlying the left kidney. Please see Dr. Mistry's procedure note. Fluoro time 21.4 seconds. DATA REPOSITORY: RADIATION DOSE DELIVERED:
[2019-07-29] MEDS: Lidocaine 2% Jelly 6 ML SYR (13:08)
[2019-07-29] MEDS: Omnipaque 300 MG/ML 50 ML BTL (13:17)
--- NOTE | 2019-07-29 13:30 | W.PM.DSUDISC ---
Discharge Plan Disposition Patient Disposition: HOME Condition: Fair Discharge Details Chief Complaint: FlankPain Clinical Impression: Left ureteral stone, UTI (urinary tract infection), bacterial Attending Provider: Rafael Bowser Primary Care Provider: Ana Daily ED Provider: Michael Stiles Home Meds and New Rx's Prescriptions: No Action melatonin 3 mg tablet 3 mg PO HS PRNRF: 0 estradiol [Vagifem] 10 mcg tablet 10 mcg VG twice weekly Qty: 24 RF: 5 hydrocodone-acetaminophen 5-325 mg tablet 1 tab PO BID MDD 10 PRN (Reason: pain) Qty: 10 RF: 0 multivitamin [Daily Multi-Vitamin] 1 EACH tablet 1 ea PO DAILY RF: 0 Lactaid 3,000 UNIT tablet,chewable 9,000 unit PO PRN RF: 0 Ondansetron Odt, 3 Tabs/Btl [Zofran Odt, 3 Tabs/Btl] 4 mg PO Q8H PRN (Reason: Nausea And Vomiting) Qty: 3 RF: 0 tamsulosin 0.4 mg capsule 0.4 mg PO DAILY Qty: 14 RF: 0 ibuprofen 600 mg tablet 600 mg PO Q6H PRNQty: 20 RF: 0 Discharge Instructions Additional Instructions: my office with contact pt regarding additional surgical procedures scripts for pain meds and antibiotics sent to pharmacy Activity:: Activity as Tolerated Shower/Bathe:: 24 hours Diet:: As Tolerated Discharge Orders Discharge Orders: Discharge Order (Routine); Ordered 07/29/19 Ordered By: Jimmy Mistry Discharge Data Discharge Comment: attending is Dr Mistry, not Dr Bowser DS: Diagnosis Discharge Diagnosis (1) Left ureteral stone: Status: Acute
--- NOTE | 2019-07-29 13:37 | PDOC.DSDIS_ITS ---
Discharge Plan Disposition Patient Disposition: HOME Condition: Fair Discharge Details Chief Complaint: FlankPain Clinical Impression: Left ureteral stone, UTI (urinary tract infection), bacterial Attending Provider: Rafael Bowser Primary Care Provider: Ana Daily ED Provider: Michael Stiles Home Meds and New Rx's Prescriptions: No Action melatonin 3 mg tablet 3 mg PO HS PRNRF: 0 estradiol [Vagifem] 10 mcg tablet 10 mcg VG twice weekly Qty: 24 RF: 5 hydrocodone-acetaminophen 5-325 mg tablet 1 tab PO BID MDD 10 PRN (Reason: pain) Qty: 20 RF: 0 ciprofloxacin HCl 250 mg tablet 250 mg PO BID Qty: 10 RF: 0 multivitamin [Daily Multi-Vitamin] 1 EACH tablet 1 ea PO DAILY RF: 0 Lactaid 3,000 UNIT tablet,chewable 9,000 unit PO PRN RF: 0 Ondansetron Odt, 3 Tabs/Btl [Zofran Odt, 3 Tabs/Btl] 4 mg PO Q8H PRN (Reason: Nausea And Vomiting) Qty: 3 RF: 0 tamsulosin 0.4 mg capsule 0.4 mg PO DAILY Qty: 14 RF: 0 ibuprofen 600 mg tablet 600 mg PO Q6H PRNQty: 20 RF: 0 Discharge Instructions Additional Instructions: my office with contact pt regarding additional surgical procedures scripts for pain meds and antibiotics sent to [facility] pharmacy Activity:: Activity as Tolerated Shower/Bathe:: 24 hours Diet:: As Tolerated Discharge Orders Discharge Orders: Discharge Order (Routine); Ordered 07/29/19 Ordered By: Jimmy Mistry Discharge Data Discharge Comment: attending is Dr Mistry, not Dr Bowser DS: Diagnosis Discharge Diagnosis (1) Left ureteral stone: Status: Acute
[2019-07-29] MEDS: Phenazopyridine 200 MG TAB PO (13:52)
[2019-07-29 15:11] VITALS: BP 115/74; PULSE 56; RESP 16; TEMP 36; O2SAT 98
--- NOTE | 2019-08-01 08:02 | ROE_ITS ---
DATE OF PROCEDURE July 29, 2019 PREOPERATIVE DIAGNOSIS Left ureteral stone. POSTOPERATIVE DIAGNOSIS Left ureteral stone. PROCEDURE Cystoscopy, left retrograde pyelogram, insert left ureteral stent. SURGEON Jimmy Mistry M.D. ANESTHESIA MAC with local. COMPLICATIONS None. HISTORY This is a 59-year-old woman who presented to the Emergency Room two days ago with left renal colic. S he was found to have a 4-mm left proximal ureteral stone. He pain improved, but she has had several r ecurrent episodes of pain and was found to have a positive urine culture, which has grown enterococcu s. She presented to the Emergency Room this morning with severe left flank pain. She presents now for stent placement. On her CT scan, we also identified a stone within the bladder. We have elected not to treat that part icular stone today as we are performing urgent and emergent surgeries only. OPERATIVE REPORT The patient was brought to the Operating Room on 07/29/2019. After successful induction of Monitored A nesthesia Care, she was placed in the dorsal lithotomy position. Her genitalia was prepped and draped sterilely. A #22-German rigid cystoscope was passed through the urethra into the bladder. The urethra and bladde r were inspected with a 30-degree lens. The left ureteral orifice was visualized and appeared relatively normal. The right orifice was marked ly distorted with a large bulge beneath the ureteral orifice. I did not see a stone floating within t he bladder. I believe the stone that was identified on CT scan is actually there in the distal ureter , perhaps within a ureterocele. I was unable to pass a #6 German access catheter directly into the left ureteral orifice. I was howev er, able to pass a guidewire and advance the access catheter over the wire. We did a retrograde pyelogram by injecting Omnipaque through the access catheter under fluoroscopic g uidance. The entire ureter seemed rather dilated. We the replaced the wire and maneuvered the wire such that the proximal end was up in the renal pelvi s. The access catheter was removed. We then passed a #4.8 German variable length stent over the wire and positioned the stent such that the proximal end was within the renal pelvis and the distal end wa s within the bladder. Placement of the stent should relieve any hydronephrosis and obstructive process going on. We will ne ed a staged procedure where she returns to the Operating Room electively to have both the left ureter al stone treated (unless it already passes) as well as the right-sided stone treated. She tolerated this procedure well with no complications.
== END 2019-07-29 15:05 | disposition home or self-care (01) ==
LOC: ER 08:13 → DSU 08:15
PROVIDERS: Urology; Emergency Provider Emergency Medicine; PCP Nurse Practitioner; Visit Provider Student in an Organized Health Care Education/Training Program
PROC: (CPT 52332; principal; 2019-07-29 11:00)
DX: N20.1 Calculus of ureter (principal); Z87.440 Personal history of urinary (tract) infections
CPT/HCPCS: 52332; 52005; 36415; 80048; 96361; 96374; 96375; 99235; 99285; 74420; 81003; 81015; 85025; 87086; 99284; J1885; J2270; J2405; Q9967

== ENCOUNTER 2019-08-04 01:07 | Outpatient (CLI) | payer OTHER, SELFPAY ==
--- NOTE | 2019-08-04 12:37 | DI.MAMMO_ITS ---
EXAM: MG MAMMO SCREENING CLINICAL HISTORY: SCREENING, Z12.39 TECHNIQUE: Bilateral full field digital CC and MLO mammographic images were obtained with 3D tomosyn thesis and utilizing computer aided detection (CAD). COMPARISON: Available for comparison. FINDINGS: Masses/Architectural Distortion: None seen. Microcalcifications: No suspicious pleomorphic-type are seen. Skin Thickening/Nipple Retraction: None. IMPRESSION: 1. No significant interval change with no specific features of malignancy noted. 2. Unless there is more urgent need, screening mammography is recommended, as per [employer] guidelines. BI-RADS Cat 1 - Negative Breast Density - Category C - Heterogeneously dense The mammogram demonstrates the patient's breast tissue is dense. Dense breast tissue is very common a nd is not abnormal but dense breast tissue can make it harder to find cancer on a mammogram. Also, de nse breast tissue may increase their breast cancer risk. This information about the result of the [facility] mogram report was provided to the patient to raise their awareness. Use this report when you speak wi th the patient about their risks for breast cancer, which includes their family history. At that time , you may recommend for more screening tests (Ultrasound or MRI) as they might be useful based on the ir risk. A negative radiographic report should not delay biopsy if a dominant or clinically suspicious mass is present. Up to ten percent of cancers are not identified on mammography. A negative report may reinforce clinical impression. Adenosis and dense breasts may obscure an underlying neoplasm. False positive reports average 6 to 10%. Patient will receive a letter notifying them of these results.
== END 2019-08-04 01:27 ==
PROVIDERS: PCP Nurse Practitioner; Visit Provider Nurse Practitioner Family
DX: Z12.31 Encounter for screening mammogram for malignant neoplasm of breast (principal)
CPT/HCPCS: 77063; 77067

== ENCOUNTER 2019-08-31 17:05 | Outpatient (REF) | payer OTHER, SELFPAY | END 2019-08-31 17:25 | LOC: LBN 17:05 | PROVIDERS: PCP Nurse Practitioner; Visit Provider Nurse Practitioner Gerontology | DX: N39.0 Urinary tract infection, site not specified (principal); N20.1 Calculus of ureter; A49.9 Bacterial infection, unspecified | CPT/HCPCS: 87077; 87086; 87186 ==

== ENCOUNTER 2019-09-01 08:30 | Day surgery (SDC) | payer OTHER, SELFPAY ==
[2019-09-01] VITALS (9 sets, daily range): BP systolic 132–178; BP diastolic 79–97; PULSE 40–60; RESP 11–18; TEMP 36.1–36.4; O2SAT 97–100
--- NOTE | 2019-09-01 08:56 | HPE_ITS ---
Date of service: 09/01/19 Time of Service: 09:17 Assessment and Plan Assessment and plan (1) Bilateral ureteral calculi: Status: Acute Assessment and plan: For the left ureteral stone, we will plan on removing the left ureteral stent, doing a retrograde pyelogram, doing either a semirigid or flexible ureteroscopy with stone manipulation. We may need a holmium laser or we may be able to extract the stone by itself. On the right side, the stone is lodged in the distal ureter. I am not certain that I will be able to access the ureteral orifice, so I will be prepared to incise the orifice to expose the stone and treat the stone in that manner. History of Present Illness History of Present Illness Chief Complaint: Bilateral ureteral stones Narrative: This is a 59-year-old woman who presented to the emergency room with left flank pain. She was found to have a left proximal ureteral stone as well as what appeared to be a stone in the bladder. When her symptoms persisted, we placed a left ureteral stent to relieve her hydronephrosis. At the time of her cystoscopy, no stone was seen in the bladder. It appeared that the stone was wedged in the right distal ureter, perhaps in a ureterocele. Her stent is still in place and is causing stent discomfort. She was seen in the office yesterday and started on an antibiotic. Her urine culture is not available. She presents for stone manipulation. Review of Systems Narrative: Const: Denies chills, fatigue, fever(s) or weight loss Card: Denies chest pain or dyspnea Resp: Denies dyspnea GI: Reports constipation; Denies abdominal pain or diarrhea : Reports urinary frequency, dysuria and flank pain; Denies hematuria, nocturia, urinary incontinence, urinary hesitancy or urinary urgency Endo: Denies fatigue [facility] Medical History (Updated 09/01/19 @ 08:59 by Jimmy Mistry MD) Atrophic vaginitis (Acute 06/03/13) Bilateral ureteral calculi (Acute) History of kidney stones (Acute) History of recurrent UTI (urinary tract infection) (Acute) Surgical History (Updated 09/01/19 @ 08:50 by Allyson Najera) Colonoscopy - MAC (05/22/17) H/O cystoscopy (Acute) History of bunionectomy (Acute) cheilectomy bunionectomy right foot 2002 History of surgical removal of lesion (Acute) dysplastic nevi exc. from back 2010 Social History Smoking/Tobacco Use Status: Never Alcohol Intake: current Alcohol Intake frequency: a few times a week Alcohol type: wine Drug use: Never Substance use type: does not use current occupation: [employer] Do you feel safe at home: Yes Do you feel safe in your relationship?: Yes History History 0 Para Hx # Term Pregnancies Multiple births Hx # Pregnancies Ectopic pregnancies AB induced Hx Number of Living Children AB spontaneous Meds Home Medications and Allergies Home Medications Medication Instructions Recorded Confirmed Type Lactaid 9,000 unit PO PRN tab.chew 06/09/14 09/01/19 History multivitamin [Daily Multi-Vitamin] 1 ea PO DAILY 06/09/14 09/01/19 History melatonin 3 mg tablet 3 mg PO HS PRN 05/20/18 09/01/19 History estradiol 10 mcg vaginal tablet 10 mcg VG twice weekly #24 tab 07/07/19 09/01/19 Rx Ondansetron ODT, 3 tabs/btl 4 mg PO Q8H PRN #3 tab 07/27/19 09/01/19 Rx [Zofran ODT, 3 tabs/btl] ibuprofen 600 mg PO Q6H PRN #20 tab 07/27/19 09/01/19 Rx nitrofurantoin macrocrystal 100 mg 100 mg PO BID #10 cap 08/31/19 09/01/19 Rx capsule Allergies Allergy/AdvReac Type Severity Reaction Status Date / Time Sulfa (Sulfonamide Allergy Intermediate rash Verified 09/01/19 08:49 Antibiotics) doxycycline AdvReac Mild Diarrhea Verified 09/01/19 08:49 Exam Narrative Exam Narrative: Const Orientation: alert, awake and oriented x3 Other: VS reviewed that were done by nurse Eyes Sclera: sclerae normal Resp Effort & Inspection: normal respiratory effort GI Inspection: normal to inspection and non-distended Palpation: soft and nontender General: CVA tenderness on the left (Minimal); not on the right Extrem General: full ROM Lungs: Clear Cardiac: Regular rate and rhythm COVID-19 Screening Traveled to [place] from one of the affected countries or regions?: NO
[2019-09-01] MEDS: Lactated Ringers 1,000 ML 80 ML IV (09:17)
[2019-09-01] MEDS: ceFAZolin 1 GM/50 ML BAG IVPB (09:41)
[2019-09-01] MEDS: Lidocaine 2% Jelly 6 ML SYR (09:53)
[2019-09-01] MEDS: Omnipaque 300 MG/ML 50 ML BTL (09:57)
--- NOTE | 2019-09-01 10:38 | DI.RAD_ITS ---
EXAM: XR RETROGRADE IN OR CLINICAL HISTORY: Bilateral ureteral calculi TECHNIQUE: Fluoroscopy was provided for the referring physician for guidance with performing left re trograde procedure. Fluoro time: 273 sec, 2.96 mGy COMPARISON: No exams were available for comparison FINDINGS: Please see procedure note for details. RADIATION DOSE DELIVERED:
--- NOTE | 2019-09-01 10:59 | PDOC.DSDIS_ITS ---
Discharge Plan Disposition Patient Disposition: HOME Condition: Stable Discharge Details Attending Provider: Jimmy Mistry Primary Care Provider: Ana Daily Home Meds and New Rx's Prescriptions: No Action melatonin 3 mg tablet 3 mg PO HS PRNRF: 0 estradiol [Vagifem] 10 mcg tablet 10 mcg VG twice weekly Qty: 24 RF: 5 nitrofurantoin macrocrystal 100 mg capsule 100 mg PO BID Qty: 10 RF: 0 hydrocodone-acetaminophen 5-325 mg tablet 1 tab PO BID MDD 10 PRN (Reason: pain) Qty: 20 RF: 0 multivitamin [Daily Multi-Vitamin] 1 EACH tablet 1 ea PO DAILY RF: 0 Lactaid 3,000 UNIT tablet,chewable 9,000 unit PO PRN RF: 0 Ondansetron Odt, 3 Tabs/Btl [Zofran Odt, 3 Tabs/Btl] 4 mg PO Q8H PRN (Reason: Nausea And Vomiting) Qty: 3 RF: 0 ibuprofen 600 mg tablet 600 mg PO Q6H PRNQty: 20 RF: 0 Discharge Instructions Additional Instructions: No need to strain urine Follow-up 6 to 8 weeks with renal ultrasound Prescription for hydrocodone sent to [facility] pharmacy Activity:: Activity as Tolerated Shower/Bathe:: 24 hours Diet:: As Tolerated DS: Diagnosis Discharge Diagnosis (1) Bilateral ureteral calculi: Status: Acute
--- NOTE | 2019-09-01 11:09 | W.PM.OP ---
Date of service: 09/01/19 Time of Service: 11:10 Operative Note Operative Note DATE OF PROCEDURE: 09/01/19 PRE-OP DIAGNOSIS: Bilateral ureteral stones POST-OP DIAGNOSIS: same PROCEDURE: Cystoscopy, remove left ureteral stent, left retrograde pyelogram, left flexible ureteroscopy, evacuation of multiple ureteral and renal pelvic blood clots Transurethral incision of right ureteral orifice with evacuation of right ureteral stone SURGEON: Jimmy Mistry ANESTHESIA: MAC ESTIMATED BLOOD LOSS: 100 PATHOLOGY: other (Right ureteral stone for chemical analysis) COMPLICATIONS: None Patient was transported to: same day Patient's condition: stable Indications: This is a 59-year-old woman who presented to the emergency room with left-sided renal colic. She was identified as having a left proximal ureteral stone. She failed outpatient management so she was treated with placement of a ureteral stent At the time of her initial diagnosis there was also a finding of a bladder stone on CT scan. When I did her cystoscopy to place her ureteral stent, we found that the stone was not actually within the bladder but appeared to be just within the right ureteral orifice. She now presents for cystoscopy with removal of her ureteral stent, left ureteroscopy with stone manipulation and transurethral incision of the right ureteral orifice to treat her right ureteral stone. Findings: Multiple clots in the left ureter and left collecting system. Multiple small stones adherent to the calyceal mucosa, but I did not identify a free-floating left ureteral or renal stone Large right distal ureteral stone Procedure Description: The patient was given preoperative IV antibiotics. She was brought to the operating room on 09/01/2019. After successful induction of monitored anesthesia care, she was placed in the dorsal lithotomy position. Her genitalia is prepped and draped. 2% Xylocaine jelly was instilled into the urethra. A 22 Swiss rigid cystoscope was passed through the urethra into the bladder. The bladder was inspected with the 30 degree lens. The right ureteral orifice appeared distorted with a large bulge just behind the orifice. This finding corresponds with her previously identified stone. The left ureteral orifice was a bit erythematous and the stent could be seen protruding from the orifice. The stent was grasped and alligator forceps and brought out to the level of the urethral meatus. A Glidewire was then passed through the lumen of the stent and the stent was removed. An access catheter was advanced over the wire and the wire was removed. A retrograde pyelogram was then obtained by injecting Omnipaque through the access catheter under fluoroscopic guidance. Multiple filling defects were seen throughout the upper ureter and collecting system. I passed a guidewire back through the access catheter and remove the catheter. We then positioned a dual-lumen catheter and placed a second guidewire. We chose 1 of the wires as a working wire and the other is a safety wire. A ureteral access sheath was advanced over the working wire. The safety wire was left in place. The flexible ureteroscope was then passed through the access sheath up to the proximal ureter and collecting system. Multiple clots were identified in the ureter and collecting system. The presence of these clots made visibility difficult. We extracted multiple clots using a 0 tip stone basket so that we would have better visibility. I did identify multiple small stones that was still adherent to the calyceal mucosa. I did not see any free floating stones in the calyces or ureter. Once all of the large clot burden had been removed, we removed the access sheath and guidewire. I then passed the 24 Swiss resectoscope sheath through the urethra into the bladder. We identified the area of distortion on the right ureteral orifice. I used bipolar cautery and a needle tip electrode to incise over this area. A large yellow tinted stone was identified in this region. I was able to tease the stone free from the mucosa. I was able to trap the stone against the resectoscope sheath and remove it in its entirety. The stone was sent to pathology for chemical analysis. I reinserted the resectoscope and cauterized any of the surrounding mucosa that appeared vascular or bleeding. At the completion of the procedure there was no active bleeding noted. The patient tolerated this procedure well with no complications.
[2019-09-01] MEDS: fentaNYL 100 MCG/2 ML VIAL IVP ×2 (11:19→12:00)
[2019-09-01] MEDS: HYDROcodone 5/Acetaminophen 325 TAB PO (11:59)
[2019-09-01] MEDS: Phenazopyridine 200 MG TAB PO (12:00)
[2019-09-05 21:04] LABS: Source: Right Ureter
== END 2019-09-01 12:55 | disposition home or self-care (01) ==
PROVIDERS: PCP Nurse Practitioner; Visit Provider Urology
PROC: (CPT 52352; principal; 2019-09-01 09:30)
DX: N20.1 Calculus of ureter (principal)
CPT/HCPCS: 52352; NC; 74420; 82365; J0690; J1100; J1885; J2001; J2405; J2704; J3010; Q9967

== ENCOUNTER 2019-10-07 02:21 | Outpatient (CLI) | payer OTHER, SELFPAY ==
--- NOTE | 2019-10-07 06:30 | DI.US_ITS ---
EXAM: US RENAL CLINICAL HISTORY: r/o hydronephrosis after ureteroscopy,bilat ureteral calculi,n20.1. TECHNIQUE: Vieira scale, color and spectral Doppler were used. COMPARISON: CT CT RENAL COLIC WO from 07/27/2019 FINDINGS: Renal size in cm: Right: 8.7 left: 9.0 Echogenicity: Normal Hydronephrosis: No Cyst or mass: No Nephrolithiasis: None visualized by ultrasound. Bilateral tiny nonobstructing stones were seen on th e previous CT. Other findings: None Bladder:Normal both ureteral jets were visualized. Prevoid vol:346 Postvoid vol:23 IMPRESSION: No evidence of hydronephrosis. No renal calculi are visible. DATA REPOSITORY:
== END 2019-10-07 02:41 ==
PROVIDERS: PCP Nurse Practitioner; Visit Provider Urology
DX: N20.1 Calculus of ureter (principal)
CPT/HCPCS: 76770

== ENCOUNTER 2020-04-11 00:50 | Outpatient (CLI) | payer OTHER, SELFPAY ==
--- NOTE | 2020-04-11 07:15 | DI.US_ITS ---
EXAM: US RENAL CLINICAL HISTORY: monitor known stones,BILAT RENAL STONES,N20.0. TECHNIQUE: Vieira scale, color and spectral Doppler were used. COMPARISON: No exams were available for comparison FINDINGS: Renal size in cm: Right: 8.6. Left: 9 cm. There is normal cortical thickness and corticomedullary differentiation both kidneys. No calculi nor cyst nor hydronephrosis. No solid renal masses. Bladder:Prevoid volume is 346 cc. Postvoid volume is 23 cc. There is no evidence of obvious bladder wall mass on these images. Both ureterovesical jets were identified. Renal color flow: Symmetric and within normal limits. IMPRESSION: Unremarkable examination. Postvoid residual bladder volume is 23 cc. DATA REPOSITORY:
== END 2020-04-11 01:10 ==
PROVIDERS: PCP Nurse Practitioner; Visit Provider Urology
DX: N20.0 Calculus of kidney (principal)
CPT/HCPCS: 76770

== ENCOUNTER 2020-08-08 01:50 | Outpatient (CLI) | payer OTHER, SELFPAY ==
--- NOTE | 2020-08-08 11:35 | DI.MAMMO_ITS ---
EXAM: MG MAMMO SCREENING CLINICAL HISTORY: screening. TECHNIQUE: Bilateral full field digital CC and MLO mammographic images were obtained with 3D tomosyn thesis and utilizing computer aided detection (CAD). COMPARISON: Prior mammograms dating back to 2011, the most recent being July 2019. FINDINGS: There are no new spiculated masses nor malignant appearing microcalcification groups. Asymmetric tissue upper outer quadrant of the left breast is unchanged from prior studies. There is no significant architectural distortion nor skin thickening-retraction. IMPRESSION: No radiographic evidence of malignancy. BI-RADS Category 1 - Negative Breast Density - Category B - Scattered areas of fibroglandular density Breast density Category C or D implies that the patient has dense breast tissue. Dense breast tissue can make it harder to find cancer on a mammogram. Dense breast tissue is also associated with an incr eased risk of breast cancer. This information about the result of the mammogram report was provided to the patient to raise their awareness. Use this report when you speak with the patient about their risks for breast cancer, which includes their family history. At that time, you may recommend additional screening tests (Ultrasoun d or MRI) as these tests may add significant information. A negative radiographic report should not delay biopsy if a dominant or clinically suspicious mass is present. Up to ten percent of cancers are not identified on mammography. A negative report may reinforce clinical impression. Adenosis and dense breasts may obscure an underlying neoplasm. False positive reports average 6 to 10%. Patient will receive a letter notifying them of these results.
== END 2020-08-08 02:10 ==
PROVIDERS: PCP Nurse Practitioner; Visit Provider Nurse Practitioner Family
DX: Z12.31 Encounter for screening mammogram for malignant neoplasm of breast (principal)
CPT/HCPCS: 77063; 77067

== ENCOUNTER 2021-06-27 19:52 | Outpatient (REF) | payer OTHER, SELFPAY | END 2021-06-27 19:53 | disposition home or self-care (01) | LOC: LBN 19:52 | PROVIDERS: PCP Nurse Practitioner; Visit Provider Nurse Practitioner Gerontology | DX: A49.9 Bacterial infection, unspecified (principal); N39.0 Urinary tract infection, site not specified | CPT/HCPCS: 87077; 87086; 87186 ==

== ENCOUNTER 2021-07-25 01:54 | Outpatient (CLI) | payer OTHER, SELFPAY ==
--- NOTE | 2021-07-25 15:30 | DI.MAMMO_ITS ---
Exam(s) MAMMO SCREENING EXAM: MAMMO SCREENING CLINICAL HISTORY: screening. TECHNIQUE: Bilateral full field digital CC and MLO mammographic images were obtained with 3D tomosyn thesis and utilizing computer aided detection (CAD). COMPARISON: Prior mammograms dating back to 2012 were reviewed, the most recent being July 2020. FINDINGS: Asymmetric density in the upper-outer quadrant of the right breast is unchanged from prior studies. There are no new spiculated masses nor malignant appearing microcalcification groups. There is no significant architectural distortion nor skin thickening-retraction. IMPRESSION: No radiographic evidence of malignancy. BI-RADS Category 1 - Negative Breast Density - Category B - Scattered areas of fibroglandular density Breast density Category C or D implies that the patient has dense breast tissue. Dense breast tissue can make it harder to find cancer on a mammogram. Dense breast tissue is also associated with an incr eased risk of breast cancer. This information about the result of the mammogram report was provided to the patient to raise their awareness. Use this report when you speak with the patient about their risks for breast cancer, which includes their family history. At that time, you may recommend additional screening tests (Ultrasoun d or MRI) as these tests may add significant information. A negative radiographic report should not delay biopsy if a dominant or clinically suspicious mass is present. Up to ten percent of cancers are not identified on mammography. A negative report may reinforce clinical impression. Adenosis and dense breasts may obscure an underlying neoplasm. False positive reports average 6 to 10%. Patient will receive a letter notifying them of these results.
== END 2021-07-25 02:14 ==
PROVIDERS: PCP Nurse Practitioner; Visit Provider Obstetrics & Gynecology
DX: Z12.31 Encounter for screening mammogram for malignant neoplasm of breast (principal)
CPT/HCPCS: 77063; 77067

== ENCOUNTER 2022-09-17 00:54 | Outpatient (CLI) | payer OTHER, SELFPAY ==
--- NOTE | 2022-09-17 15:05 | DI.MAMMO_ITS ---
Exam(s) MAMMO SCREENING EXAM: MAMMO SCREENING CLINICAL HISTORY: screening,Z12.39 TECHNIQUE: Mammograms were interpreted according to the usual protocol including computer analysis w [employer] CAD system, tomosynthesis and C-view imaging. COMPARISON: 2013 through 2021 FINDINGS: The breasts are composed of scattered fibroglandular densities, Breast Density category B. No suspicious masses or suspicious microcalcifications are seen. No skin thickening or abnormal axillary lymph nodes are seen. There has been no significant change from prior exams. IMPRESSION: BI-RADS Category 1, Negative mammogram Yearly screening mammography is recommended. Breast Density - Category B, scattered fibroglandular densities. A negative radiographic report should not delay biopsy if a dominant or clinically suspicious mass is present. Up to ten percent of cancers are not identified on mammography. A negative report may reinforce clinical impression. Adenosis and dense breasts may obscure an underlying neoplasm. False positive reports average 6 to 10%. Patient will receive a letter notifying them of these results.
== END 2022-09-17 01:14 ==
LOC: DI 00:54
PROVIDERS: PCP Nurse Practitioner; Visit Provider Obstetrics & Gynecology
DX: Z12.31 Encounter for screening mammogram for malignant neoplasm of breast (principal)
CPT/HCPCS: 77063; 77067

== ENCOUNTER 2023-10-26 15:28 | Outpatient (REF) | payer OTHER, SELFPAY ==
--- NOTE | 2023-10-26 15:40 | PAPFT_PTH ---
PATIENT: Jocelyn Saravia LOC: [facility] U#:[id number] AGE/SX: 63/F ROOM: RE10/26/[address]: Corrine Joaquin DO : 1960 BED: DIS: 10/26/2023 SPEC #: [id number] RECD: 10/26/23 18:16 STATUS: SOUEleazar REQ #: [id number] CHAU: 10/26/23 15:[address]: Corrine Joaquin DEPT: [facility] Cytology RECD BY: Melvi Mckinnon ENTERED: 10/26/23 18:17 SP TYPE: PAPFT OTHR DR: Unknown,Unknown Tissues: 1 - CX/ENDOCX FOR PAP SMEARS Procedures: PAP THIN PREP/[facility] Screening HPV DNA PROBE Comments: [id number]
== END 2023-10-26 15:29 | disposition home or self-care (01) ==
LOC: LBN 15:28
PROVIDERS: Visit Provider Obstetrics & Gynecology
DX: Z12.4 Encounter for screening for malignant neoplasm of cervix (principal); Z11.51 Encounter for screening for human papillomavirus (HPV)
CPT/HCPCS: 88142; 87624

== ENCOUNTER 2023-12-29 01:21 | Outpatient (CLI) | payer OTHER, SELFPAY ==
--- NOTE | 2023-12-29 07:15 | DI.MAMMO_ITS ---
Exam(s) MAMMO SCREENING EXAM: MAMMO SCREENING CLINICAL HISTORY: screening,Z12.39 TECHNIQUE: Mammograms were interpreted according to the usual protocol including computer analysis w [employer] CAD system, tomosynthesis and C-view imaging. COMPARISON: 2014 through 2022 FINDINGS: The breasts are composed of scattered fibroglandular densities, Breast Density category B. No suspicious masses or suspicious microcalcifications are seen. No skin thickening or abnormal axillary lymph nodes are seen. There has been no significant change from prior exams. IMPRESSION: BI-RADS Category 1, Negative mammogram Yearly screening mammography is recommended. Breast Density - Category B, scattered fibroglandular densities. A negative radiographic report should not delay biopsy if a dominant or clinically suspicious mass is present. Up to ten percent of cancers are not identified on mammography. A negative report may reinforce clinical impression. Adenosis and dense breasts may obscure an underlying neoplasm. False positive reports average 6 to 10%. Patient will receive a letter notifying them of these results.
== END 2023-12-29 01:41 ==
LOC: DI 01:22
PROVIDERS: Visit Provider Obstetrics & Gynecology
DX: Z12.31 Encounter for screening mammogram for malignant neoplasm of breast (principal)
CPT/HCPCS: 77063; 77067

== ENCOUNTER 2024-03-08 02:52 | Outpatient (CLI) | payer OTHER, SELFPAY ==
[2024-03-08 07:29] LABS: Abs Immature Grans 0.02 10^3/uL (0.0-0.06); Absolute Basophil Count 0.03 10^3/uL (0.0-0.2); Absolute Eosinophil Count 0.04 10^3/uL (0.0-0.7); Absolute Lymphocyte Count 1.48 10^3/uL (1.2-3.4); Absolute Monocyte Count 0.44 10^3/uL (0.1-0.8); Absolute Neutrophil Count 2.76 10^3/uL (1.2-6.7); Basophils % 0.6 %; Eosinophils % 0.8 %; HCT 42.7 % (36.0-46.0); HGB 14.8 g/dL (11.2-15.7); Immature Grans % 0.4 %; MCH 33.7 pg (27.0-33.0); MCHC 34.7 % (32.0-36.0); MCV 97 fL (80-95); Monocytes % 9.2 %; Platelet Count 224 10^3/uL (130-400); RBC 4.39 10^6/uL (3.93-5.22); RDW 11.7 % (11.7-14.6); RDW-SD 42.5 fL; WBC 4.77 10^3/uL (4.4-10.8)
[2024-03-08 08:40] LABS: ALT 50 U/L (14-59); AST 27 U/L (15-37); Albumin 3.7 g/dL (3.4-5.0); Alkaline Phosphatase 67 U/L (46-116); Anion Gap 8.7 mmol/L (3-11); BUN 20 mg/dL (7-18); Bilirubin, Total 0.58 mg/dL (0.2-1.0); CO2 29.3 mmol/L (21.0-32.0); CREATININE 1.1 mg/dL (0.55-1.02); Calcium 9.3 mg/dL (8.5-10.1); Calculated LDL 178 mg/dL (<100); Chloride 106 mmol/L (98-107); Cholesterol 290 mg/dL (<200); Estimated GFR 55.76 (mL/min/1.73m2); Glucose 102 mg/dL (74-106); HDL Cholesterol 63 mg/dL (40-60); Potassium 4.8 mmol/L (3.5-5.1); Sodium 144 mmol/L (136-145); TSH (W/Ref FT4) 6.49 uIU/mL (0.36-3.74); Triglyceride 247 mg/dL (<150)
[2024-03-08 09:11] LABS: FREE T4 0.77 ng/dL (0.76-1.46)
== END 2024-03-08 02:53 | disposition home or self-care (01) ==
LOC: LBO 02:52
PROVIDERS: PCP Nurse Practitioner; Referring Provider Nurse Practitioner; Visit Provider Nurse Practitioner
DX: Z13.220 Encounter for screening for lipoid disorders (principal); F32.A Depression, unspecified; R53.83 Other fatigue
CPT/HCPCS: 36415; 80053; 80061; 84439; 84443; 85025

== ENCOUNTER 2024-03-10 01:48 | Outpatient (CLI) | payer OTHER, SELFPAY ==
--- NOTE | 2024-03-10 07:00 | DI.DEXA_ITS ---
Exam(s) XR DEXA BONE DENSITY W/WO ALYSON EXAM: XR DEXA BONE DENSITY W/WO ALYSON CLINICAL HISTORY: screening for osteoporosis in asymptomatic menopausal state,family h/o TECHNIQUE: H[employer] Horizon C densitometer analysis of left hip, lumbar spine and left forearm. Lat eral survey image of the thoracic and lumbar spine. COMPARISON: No exams were available for comparison FINDINGS: Lateral view of the thoracic and lumbar spine shows no evidence of compression fractures. Bone mineral density measurements of the lumbar spine correspond to a total T-score of -2.2, in the osteopenic range. Bone mineral density measurements of the left hip correspond to a total T-score of -1.1. The femora l neck T-score is -1.4, in the osteopenic range.. Theleft forearm bone mineral density measurements correspond to a T-score of the distal 3rd of -0.6, in the normal range.. IMPRESSION: Osteopenia of the spine and hip. Normal bone mineral density of the forearm.
== END 2024-03-10 02:08 ==
LOC: DI 01:48
PROVIDERS: PCP Nurse Practitioner; Visit Provider Nurse Practitioner
DX: Z78.0 Asymptomatic menopausal state (principal); Z82.62 Family history of osteoporosis; Z13.820 Encounter for screening for osteoporosis; M85.89 Other specified disorders of bone density and structure, multiple sites
CPT/HCPCS: 77080

== ENCOUNTER 2025-01-04 01:11 | Outpatient (CLI) | payer OTHER, SELFPAY ==
--- NOTE | 2025-01-04 09:15 | DI.MAMMO_ITS ---
Exam(s) MAMMO SCREENING EXAM: MAMMO SCREENING CLINICAL HISTORY: screening TECHNIQUE: Bilateral full field digital CC and MLO mammographic images were obtained with 3D tomosynthesis and utilizing computer aided detection (CAD). COMPARISON: Comparison is made with prior examinations. FINDINGS: Masses/Architectural Distortion: No suspicious masses or areas of architectural distortion are present. Microcalcifications: No suspicious pleomorphic-type are seen. Skin Thickening/Nipple Retraction: None. IMPRESSION: 1. No significant interval change with no specific features of malignancy noted. 2. Unless there is more urgent need, screening mammography is recommended, as per [employer] guidelines. BI-RADS Category 1 - Negative Breast Density - Category B - There are scattered areas of fibroglandular density. Breast density Category C or D implies that the patient has dense breast tissue. Dense breast tissue can make it harder to find cancer on a mammogram. Dense breast tissue is also associated with an increased risk of breast cancer. This information about the result of the mammogram report was provided to the patient to raise their awareness. Use this report when you speak with the patient about their risks for breast cancer, which includes their family history. At that time, you may recommend additional screening tests (Ultrasound or MRI) as these tests may add significant information. A negative radiographic report should not delay biopsy if a dominant or clinically suspicious mass is present. Up to ten percent of cancers are not identified on mammography. A negative report may reinforce clinical impression. Adenosis and dense breasts may obscure an underlying neoplasm. False positive reports average 6 to 10%. Patient will receive a letter notifying them of these results.
== END 2025-01-04 01:31 ==
PROVIDERS: Visit Provider Obstetrics & Gynecology
DX: Z12.31 Encounter for screening mammogram for malignant neoplasm of breast (principal); R92.323 Mammographic fibroglandular density, bilateral breasts
CPT/HCPCS: 77063; 77067

== ENCOUNTER 2025-03-15 03:22 | Outpatient (CLI) | payer OTHER, SELFPAY ==
[2025-03-15 09:20] LABS: Abs Immature Grans 0.04 10^3/uL (0.0-0.06); HCT 40.9 % (36.0-46.0); HGB 13.9 g/dL (11.2-15.7); Immature Grans % 0.7 %; MCH 32.6 pg (27.0-33.0); MCHC 34.0 % (32.0-36.0); MCV 96 fL (80-95); MPV 9.9 fL (8.0-11.0); Platelet Count 259 10^3/uL (130-400); RBC 4.27 10^6/uL (3.93-5.22); RDW 11.9 % (11.7-14.6); RDW-SD 41.3 fL; WBC 5.37 10^3/uL (4.4-10.8)
[2025-03-15 10:35] LABS: ALT 31 U/L (14-59); AST 19 U/L (15-37); Albumin 3.5 g/dL (3.4-5.0); Alkaline Phosphatase 72 U/L (46-116); Anion Gap 9.3 mmol/L (3-11); BUN 16 mg/dL (7-18); Bilirubin, Total 0.4 mg/dL (0.2-1.0); CO2 25.7 mmol/L (21.0-32.0); Calcium 9.4 mg/dL (8.5-10.1); Chloride 106 mmol/L (98-107); Cholesterol 303 mg/dL (<200); Glucose 69 mg/dL (74-106); HDL Cholesterol 48 mg/dL (>or=50); Potassium 3.9 mmol/L (3.5-5.1); Sodium 141 mmol/L (136-145); TSH (W/Ref FT4) 4.91 uIU/mL (0.36-3.74); Total Protein 6.9 g/dL (6.4-8.2)
== END 2025-03-15 03:23 | disposition home or self-care (01) ==
LOC: LBO 03:22
DX: N18.31 Chronic kidney disease, stage 3a (principal); R79.89 Other specified abnormal findings of blood chemistry; E78.5 Hyperlipidemia, unspecified
CPT/HCPCS: 36415; 80053; 80061; 83721; 84439; 84443; 85025